=== PATIENT | male | born 1990 | race Hispanic/Latino ===

== ENCOUNTER 2021-02-28 11:14 | Emergency (ER) | payer SELFPAY ==
[2021-02-28 11:17] VITALS: BP 135/93; PULSE 102; RESP 20; TEMP 36.3; O2SAT 98
[2021-02-28] MEDS: HYDROcodone/acetaminophen (*CRX) 7.5-325 MG TABLET 1 TAB PO (12:10)
--- NOTE | 2021-02-28 12:37 | ED.DENTAL ---
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 HEAD: Normocephalic, atraumatic. EYES: PERRLA and EOMI. ENT: Nares clear, no rhinorrhea or epistaxis. Mucous membranes moist. Oropharynx without tonsillar hypertrophy exudate or other lesions. Patient with decayed left upper posterior molar no erythematous surrounding swelling no space-occupying lesions CHEST: Clear to auscultation. No respiratory distress. No wheezes rales or rhonchi HEART: Regular rate and rhythm. No murmur heard. EXTREMITIES: Normal range of motion. No edema. SKIN: Warm, dry, no rash. NEURO: No focal deficits. Alert and oriented x3. Cranial nerves II through XII grossly intact PSYCH: Normal mood and affect. Course Course Emergency Course: Patient with dentalgia no distress in the room resting comfortably will be discharged at this time with outpatient follow-up felt appropriate for outpatient reevaluation Vital Signs Vital signs: Vital Signs Temperature 97.3 F L 02/28/21 11:17 Pulse Rate 102 H 02/28/21 11:17 Respiratory Rate 20 02/28/21 11:17 Blood Pressure 135/93 H 02/28/21 11:17 Pulse Oximetry 98 02/28/21 11:17 Temperature 97.3 F L 02/28/21 11:17 Pulse Rate 102 H 02/28/21 11:17 Respiratory Rate 20 02/28/21 11:17 Blood Pressure 135/93 H 02/28/21 11:17 Pulse Oximetry 98 02/28/21 11:17 MDM - Dental/Oral MDM Narrative Medical decision making narrative: Paitents pain and complaint coupled with physical findings are consistant with dentalgia. There are no focal signs of space occupying lesions that are compromising to the ariway. The floor of the mouth is soft with no signs of Ludwigs Angina. Patient is without trismus or drooling and able to swallow secreations. Patient is felt appropriate for discharge home with dental follow up. Discharge Plan Discharge Clinical Impression: Dental abscess Patient Disposition: Home, Self-Care Condition: Stable Instructions: Antibiotic Form, Dental Abscess (ED) Additional Instructions: Follow-up with dentistry in the next 7 days. Go to ER for shortness of breath, difficulty breathing, chest pain, fever/chills, weakness, nauseau/vomitting, unable to swallow or open the mouth etc. or any other concerns. Stay well-hydrated Take any prescribed medications as directed. Follow patient education sheets If you do not have a drug allergy to tylenol and can tolerate it then take tylenol as needed for discomfort/pain. Prescriptions: New amoxicillin 500 mg capsule 500 mg PO Q8H 10 Days Qty: 30 RF: 0 chlorhexidine gluconate [Peridex] 0.12 % mouthwash 15 ml mucous membrane BID Qty: 1500 RF: 0 naproxen 500 mg tablet 500 mg PO BID PRN (Reason: pain) Qty: 7 RF: 0 Follow-up/Referrals: PHYSICIAN,EMERGENCY ROOM NURSE [Primary Care Provider] - Dental Referral Line [Outside] [facility] [Outside] [facility] [Outside] [facility]
== END 2021-02-28 12:48 | disposition home or self-care (01) ==
PROVIDERS: Emergency Provider Family Medicine
DX: K04.7 Periapical abscess without sinus (principal)
CPT/HCPCS: 99283; A9270